=== PATIENT | female | born 1960 | race Caucasian/White ===

== ENCOUNTER → 2016-08-22 | Outpatient (CLI) | payer BC ==
[~2016-08-22] MED LIST: DRVUNK PO; IBUP-1050 PO; MULT-506 PO; OMEG10007 PO
--- NOTE | 2016-08-22 12:41 | MAMMOGRAPHY REPORT ---
UNILATERAL RIGHT DIGITAL DIAGNOSTIC MAMMOGRAM TOMOSYNTHESIS WITH CAD: 08/22/2016 CLINICAL HISTORY: Six-month follow-up of right breast calcifications. TECHNIQUE: Breast tomosynthesis in addition to standard 2D mammography was performed. Current study was also evaluated with a Computer Aided Detection (CAD) system. Right CC and MLO 2-D and tomosynt hesis images and spot magnification right cc and ML views were obtained. COMPARISON: Comparison is made to exams dated: 02/08/2016 mammogram, 02/20/2016 mammogram, 02/02/2015 m ammogram, 01/27/2014 mammogram, 01/22/2013 mammogram, and 01/21/2012 mammogram - [facility] enter. BREAST COMPOSITION: The tissue of the right breast is heterogeneously dense, which may obscure smal l masses. FINDINGS: Spot magnification views of the right breast again demonstrate a small 2 mm cluster of predominantly punctate calcifications in the right upper outer quadrant. The calcifications are stable on spot m agnification views dated 02/20/2016. In retrospect, the calcifications were likely present on the cc view from the January 2015 exam. Given the benign morphology and stability, the calcifications a re probably benign. The remainder of the right breast is stable compared to prior exams, without childress spicious masses, calcifications, or areas of architectural distortion noted. Benign vascular calcif ications are again seen within the right anterior breast. IMPRESSION: ACR-BI-RADS CATEGORY 3: PROBABLY BENIGN Small 2 mm cluster of benign-appearing calcifications in the right upper outer quadrant is likely st able dating back to the January 2015 exam. Recommend bilateral diagnostic mammograms in 6 months, to reevaluate the right breast calcifications and for routine mammography of the left breast. The patient has been verbally notified of the results. Approximately 10% of breast cancers are not detected with mammography. A negative mammographic repor t should not delay biopsy if a clinically suggestive mass is present. Hodan Vera M.D. /:08/22/2016 08:12:11 Oral Surgery Assistant: Shonna HATCH(Suad)(Nati), [facility] letter sent: Follow Up Recommended 3 BI-RADS Code: ACR-BI-RADS Category 3: Probably Benign
== END | disposition home or self-care (01) ==
LOC: C.MAMM 07:43
PROVIDERS: ATTEND Obstetrics & Gynecology
DX: R92.1 Mammographic calcification found on diagnostic imaging of breast (principal)

== ENCOUNTER → 2017-02-22 | Outpatient (CLI) | payer BC ==
--- NOTE | 2017-02-22 14:54 | MAMMOGRAPHY REPORT ---
BILATERAL DIGITAL DIAGNOSTIC MAMMOGRAM TOMOSYNTHESIS WITH CAD AND TARGETED RIGHT ULTRASOUND: 7 CLINICAL HISTORY: Short interval follow-up of right breast calcifications. Due for annual mammograph y of the left breast. The patient reports no current complaints. TECHNIQUE: Breast tomosynthesis in addition to standard 2D mammography was performed. Current study was also evaluated with a Computer Aided Detection (CAD) system. Bilateral CC and MLO 2-D and tomosy nthesis images and spot magnification right cc and ML views were obtained. COMPARISON: Comparison is made to exams dated: 08/22/2016 mammogram, 02/20/2016 mammogram, 02/08/2016 m ammogram, 02/02/2015 mammogram, 01/22/2013 mammogram, and 01/27/2014 mammogram - [facility]. BREAST COMPOSITION: The tissue of both breasts is heterogeneously dense, which may obscure small mas ses. FINDINGS: Spot magnification views of the right breast demonstrate a small 2 mm cluster of punctate benign-appearing calcifications in the right upper outer quadrant. The calcifications are stable on spot magnification views dating back to January 2016. Additionally, the calcifications appear stab le on full-field views from the 2014 exam and likely also the 2013 exam. Given the benign morphology and long-term stability, the calcifications are considered benign. A round circumscribed 8 mm mass is seen within the right central breast on the tomosynthesis images, for which ultrasound was performed. The remainder of both breasts are stable compared to prior exams , without suspicious masses, calcifications, or areas of architectural distortion noted. Other scatt ered bilateral benign-appearing calcifications are not significantly changed. Targeted ultrasound was performed of the right central breast in the region of the mammographic mass. In the right 9:00 subareolar breast, there is benign focal duct ectasia which measures 9 x 8 mm, as well as another area of focal duct ectasia measuring 9 x 9 mm in the right breast at 9:00, 2 cm from the nipple. One of these areas of focal duct ectasia corresponds with the circumscribed mammographi c mass and is benign. IMPRESSION: ACR BI-RADS CATEGORY 2: BENIGN, TARGETED ULTRASOUND ACR BI-RADS CATEGORY 2: BENIGN Small cluster of benign-appearing calcifications in the right upper outer quadrant is stable dating b ack to at least the January 2015 exam, and considered benign given long-term stability and benign m orphology. Two benign focal areas of duct ectasia in the right 9:00 breast on ultrasound, which corre sponds with a circumscribed mammographic mass. There is no mammographic evidence of malignancy in eit her breast. A 1 year screening mammogram is recommended. The patient has been verbally notified of the results. Approximately 10% of breast cancers are not detected with mammography. A negative mammographic report should not delay biopsy if a clinically suggestive mass is present. Hodan Vera M.D. ah/:02/22/2017 09:08:40 Component Inspector: Kwaku Grajeda RT(R)(M), [facility] letter sent: Normal 1/2 BI-RADS Code: ACR BI-RADS Category 2: Benign Ultrasound BI-RADS: ACR BI-RADS Category 2: Benign
== END | disposition home or self-care (01) ==
LOC: C.MAMM 07:57
PROVIDERS: ATTEND Obstetrics & Gynecology
DX: R92.1 Mammographic calcification found on diagnostic imaging of breast (principal)